=== PATIENT | male | born 1935 | race Caucasian/White ===

== ENCOUNTER 2017-02-02 16:56 | Emergency (ER) | payer OTHER, MEDICARE ==
[~2017-02-02] VITALS: Ht 172.7 cm; Wt 61.7 kg
[~2017-02-02 16:56] MED LIST: AMAN100T PO; ASPI1TAB PO; CALCIUM CHEWS PO; CARB25TA PO; CIPR500T3 PO; CLON1TAB PO; COMT200T PO; IBAN150T5 PO; IPRA6SP; MIRA0.5T PO; PERI8.6T PO; SIMV20TA2 PO; SYSTSOL14 OU; TAMS0.4C2 PO; TYLE650T25 PO; VESI10TA PO; VITA500046 PO; VITMTA PO; [UNRECOGNIZED DRUG - CODE] PO
[2017-02-02 16:57] VITALS: BP 133/62
[2017-02-02] MEDS ORDERED: ASPI81TA7 PO (17:25)
[2017-02-02] MEDS ORDERED: IBUP200C PO (17:25)
[2017-02-02] MEDS ORDERED: QUET1TAB8 PO (17:25)
[2017-02-02] MEDS ORDERED: CLON0.5T PO (17:25)
[2017-02-02] MEDS ORDERED: SERT25TA PO (17:25)
[2017-02-02] MEDS ORDERED: AUGM500T34 PO (17:25)
[2017-02-02] MEDS ORDERED: MELA5CHW PO (17:25)
[2017-02-02] MEDS ORDERED: NS 1,000 ML IV SCH (17:28)
[2017-02-02 18:07] LABS: BASO % 0.1 % (0.0-1.0); EOS % 0.4 % (0.0-3.0); INR 1.3; LARGE UNSTAINED CELL # 0.1 K/mm3 (0.0-0.4); LARGE UNSTAINED CELL % 0.9 % (0.0-4.0); LYMPH # 0.8 K/mm3 (1.5-4.5); LYMPH % 5.7 % (24.0-44.0); MEAN CORPUSCULAR HEMOGLOBIN 32.1 pg (27.0-33.0); MEAN CORPUSCULAR HGB CONC 34.1 g/dl (32.0-36.5); MEAN CORPUSCULAR VOLUME 94.2 fl (80.0-96.0); MONO # 0.3 K/mm3 (0.0-0.8); MONO % 2.7 % (0.0-5.0); NEUTROPHILS % 90.2 % (36.0-66.0); PLATELET COUNT, AUTOMATED 161 k/mm3 (150-450); RED CELL DISTRIBUTION WIDTH 12.4 % (11.5-14.5); WHITE BLOOD COUNT 12.2 K/mm3 (4.0-10.0)
[2017-02-02 18:37] LABS: ALBUMIN 2.9 GM/DL (3.2-5.2); ALBUMIN/GLOBULIN RATIO 0.85 (1.00-1.93); BILIRUBIN,DIRECT 0.4 MG/DL (0.0-0.2); BILIRUBIN,TOTAL 0.9 MG/DL (0.2-1.0); CALCIUM LEVEL 8.7 MG/DL (8.8-10.2); CREATININE FOR GFR 1.94 MG/DL (0.70-1.30); GLOMERULAR FILTRATION RATE 35.5 (>35); POTASSIUM SERUM 3.5 MEQ/L (3.5-5.1); TOTAL PROTEIN 6.3 GM/DL (6.4-8.2)
[2017-02-02] MEDS ORDERED: AVEL1TAB PO (19:16)
--- NOTE | 2017-02-03 07:36 | REP ---
PORTABLE CHEST: 02/02/2017. Comparison: 02/06/2016. Clinical history: Dyspnea and cough. Findings: No gross effusion. Soft tissue density right mid upper chest may be portable chest slightly rotated. There is hyperinflation with COPD. The right mid chest shows density representing the inferior margin of the scapula. I see no dense consolidation with air bronchograms or pneumothorax. Heart not grossly enlarged for portable AP technique. The aorta is calcified at the arch, tortuous without aneurysm. There is pulmonary artery hypertension and some fibrosis consistent with COPD. Impression: 1. There is minor basilar fibrotic or atelectatic change, left greater than right. Rotation of the chest towards that left side. COPD findings. 2. Right mid lung zone shows the scapular shadow overlying the mid chest. There is no cardiomegaly, edema, effusion or other acute finding. Signed by Gonzales Whitehead MD 02/03/2017 05:15 P
--- NOTE | 2017-02-03 20:10 | ECGEPIP ---
Stationary ECG Study [facility] - ED Test Date: 2017-02-02 Pat Name: JOSÉ ANTONIO CONDE Department: Room: - Gender: M Count Team Member: ct : 1935 Requested By: RAMIREZ BANSAL Order Number: [id number] Reading MD: Ankur Francisco Measurements Intervals [place] Rate: 67 P: 54 MI: 162 QRS: -5 QRSD: 98 T: 93 QT: 374 QTc: 395 Interpretive Statements SINUS RHYTHM NONSPECIFIC ST & T-WAVE ABNORMALITY DELAYED R WAVE PROGRESSION 11/28/15 - RATE INCREASED Electronically Signed On 02-03-2017 20:10:10 EDT by Ankur Francisco
== END 2017-02-02 20:20 | disposition home or self-care (01) ==
LOC: M ED 17:37
DX: J15.9 Unspecified bacterial pneumonia (principal); E86.0 Dehydration; I51.9 Heart disease, unspecified; Z86.73 Personal history of transient ischemic attack (TIA), and cerebral infarction without residual deficits; Z88.1 Allergy status to other antibiotic agents; Z79.899 Other long term (current) drug therapy; Z79.82 Long term (current) use of aspirin; Z79.2 Long term (current) use of antibiotics

== ENCOUNTER 2017-02-06 16:57 | Inpatient (IN) | payer OTHER, MEDICARE ==
[~2017-02-06] VITALS: Ht 172.7 cm; Wt 56.3 kg
[~2017-02-06 16:57] MED LIST changes: +ASPI81TA7 PO; +AUGM500T34 PO; +AVEL1TAB PO; +CLON0.5T PO; +IBUP200C PO; +MELA5CHW PO; +QUET1TAB8 PO; +SERT25TA PO
[2017-02-06] MEDS ORDERED: NS 1,000 ML IV SCH (17:14)
[2017-02-06] MEDS ORDERED: MOXI1TAB PO (17:26)
[2017-02-06] MEDS ORDERED: ACETAMINOPHEN 650 MG SUPP PR ONE (17:45)
[2017-02-06 18:17] LABS: VENOUS BASE EXCESS -0.2 (-2.0-2.0); VENOUS O2 SATURATION 86.3 % (60.0-80.0); VENOUS PARTIAL PRESSURE CO2 33.6 mmHg (38.0-50.0); VENOUS STANDARD HCO3 24.1 MEQ/L; VENOUS TOTAL CO2 24.2 MEQ/L (24.0-28.0)
[2017-02-06] MEDS: IPRATROPIUM 0.5MG/ALBUTEROL 2.5MG INH SOL UD 3ML (DUONEB)(J7620) NEB PRN ×3 (18:23→18:33)
[2017-02-06 18:26] LABS: BASO % 0.2 % (0.0-1.0); EOS % 0.2 % (0.0-3.0); LARGE UNSTAINED CELL # 0.1 K/mm3 (0.0-0.4); LARGE UNSTAINED CELL % 0.7 % (0.0-4.0); LYMPH # 0.7 K/mm3 (1.5-4.5); LYMPH % 4.9 % (24.0-44.0); MEAN CORPUSCULAR HEMOGLOBIN 31.2 pg (27.0-33.0); MEAN CORPUSCULAR VOLUME 94.4 fl (80.0-96.0); MONO # 0.4 K/mm3 (0.0-0.8); MONO % 3.2 % (0.0-5.0); NEUTROPHILS # 11.1 K/mm3 (1.8-7.7); NEUTROPHILS % 90.8 % (36.0-66.0); PLATELET COUNT, AUTOMATED 228 k/mm3 (150-450); RED CELL DISTRIBUTION WIDTH 12.5 % (11.5-14.5); WHITE BLOOD COUNT 12.2 K/mm3 (4.0-10.0)
[2017-02-06 18:29] LABS: INR 1.37
[2017-02-06 18:40] LABS: ALBUMIN 2.3 GM/DL (3.2-5.2); ALBUMIN/GLOBULIN RATIO 0.64 (1.00-1.93); BILIRUBIN,DIRECT 0.4 MG/DL (0.0-0.2); BILIRUBIN,TOTAL 0.8 MG/DL (0.2-1.0); TOTAL PROTEIN 5.9 GM/DL (6.4-8.2)
[2017-02-06 18:41] LABS: ANION GAP 11 MEQ/L (8-16); BLOOD UREA NITROGEN 35 MG/DL (7-18); CALCIUM LEVEL 8.1 MG/DL (8.8-10.2); CARBON DIOXIDE LEVEL 25 MEQ/L (21-32); CHLORIDE LEVEL 115 MEQ/L (98-107); CREATININE FOR GFR 1.02 MG/DL (0.70-1.30); GLOMERULAR FILTRATION RATE > 60.0 (>35); GLUCOSE, FASTING 117 MG/DL (83-110); SODIUM LEVEL 151 MEQ/L (136-145)
[2017-02-06] MEDS ORDERED: FUROSEMIDE 100 MG/10 ML VIAL (J1940) IV ONE (19:00)
[2017-02-06] MEDS ORDERED: SENN8.6T8 PO (19:03)
[2017-02-06] MEDS ORDERED: FLOM5CAP PO (19:03)
[2017-02-06] MEDS ORDERED: MOXIFLOXACIN HCL 400 MG in APPROPRIATE DILUENT 1 EA IV ONE (19:30)
[2017-02-06] MEDS ORDERED: AUGM500T34 PO (19:51)
[2017-02-06] MEDS ORDERED: OXYB15TA PO (19:51)
[2017-02-06] MEDS ORDERED: CALCTAB41 PO (19:51)
[2017-02-06] MEDS ORDERED: ACETAMINOPHEN 650 MG SUPP PR PRN (20:45)
[2017-02-06] MEDS ORDERED: ONDANSETRON 4MG/2ML VIAL (J2405) IV PRN (20:45)
[2017-02-06] MEDS ORDERED: PIPERACILLIN/TAZOBACTAM SOD 3.375 GM in D5W MINI-BAG PLUS 50 ML IV SCH (20:45)
[2017-02-06] MEDS ORDERED: SCOPOLAMINE 1.5 MG TRANSDERMAL TOP SCH (21:00)
[2017-02-06] MEDS ORDERED: IPRATROPIUM 0.06% NASAL SPRAY 15 ML (ATROVENT) SCH (21:00)
[2017-02-06] MEDS ORDERED: KCL 40MEQ IN D5/0.45NS 1000ML 1,000 ML IV SCH (21:00)
[2017-02-06] MEDS ORDERED: LORazepam 2 MG/ML VIAL (J2060) IV PRN (21:15)
[2017-02-06 21:25] VITALS: BP 117/58
[2017-02-06] MEDS ORDERED: CLINDAMYCIN 600 MG in APPROPRIATE DILUENT 1 EA IV SCH (22:00)
--- NOTE | 2017-02-06 22:00 | HPEPDOC ---
Medical History and Physical Date of Admission February 06, 2017 at 20:32 History and Physical HISTORY AND PHYSICAL Date of admission: 02/06/2017 PCP: Dr. Magallon Chief complaint: Very weak HPI: 81-year-old male with dementia, Parkinson's disease, history of CVA, hyperlipidemia, seasonal allergies, vitamin D deficiency, BPH, hiatal hernia, macular degeneration, possible COPD who was brought to the emergency department by his because she states that he has been extremely weak. The patient was seen in the emergency Department 4 days prior and was diagnosed with pneumonia. At that time, they were offered admission, but the declined, stating that they just wanted to go home. states that since they have been at home, he has hardly had anything to drink or eat and has not been swallowing. She states that he has been on a thickened liquid and pured solid diet since this past summer, secondary to risk for aspiration. She states that at that time, a feeding tube was recommended, but her does not want a feeding tube, and they have been using this modified diet in the interim. She states that although he has not been able to take most of his medications for 3 days, she has been able to get the antibiotic in him until this morning. She denies any vomiting by the patient, but she does state that his urine has been very dark, and she figured that was secondary to dehydration. The patient is not able to participate in the interview secondary to his dementia, so the entirety of this is obtained from the and prior records. The states that she knows the patient is nearing the end of his life. She is quite clear that the patient wanted to be DNR and did not when a feeding tube. She is trying to decide at this point about whether or not she wants to go home with hospice right now or give a trial of treatment through the weekend. After much discussion, and over one hour of time at the bedside with her and the patient, she has decided that she would like to proceed with a trial of treatment over the weekend. Past medical history: Dementia, Parkinson's disease, history of CVA, hyperlipidemia, seasonal allergies, vitamin D deficiency, BPH, hiatal hernia, macular degeneration, possible COPD Past surgical history: Hernia repair, cataract surgery Family history: Noncontributory secondary to age Social history: The patient quit smoking many years ago. He used to drink beer nightly, but per the , he has not been able to drink lately. Allergies: Cephalosporins Review of systems: Unable to obtain secondary to the patient's dementia. The does note that he has had fevers, cough, and constipation. She denies any vomiting, bleeding. She also notes that he has had dark urine. Home meds: See below Physical exam: Vital signs: Vital Sign - Last 24 Hours 02/06/17 02/06/17 02/06/17 02/06/17 17:10 17:30 17:30 17:57 Temp 101.2 Pulse 148 136 Resp 24 26 B/P (MAP) 148/84 (105) Pulse Ox 94 93 O2 Delivery Room Air Room Air 02/06/17 02/06/17 02/06/17 02/06/17 18:12 18:27 18:31 18:36 Temp 101.5 Pulse 78 78 80 Resp 24 B/P (MAP) Pulse Ox 92 92 02/06/17 02/06/17 02/06/17 02/06/17 18:36 18:42 18:51 18:55 Pulse 81 86 81 B/P (MAP) 120/68 (85) Pulse Ox 99 02/06/17 02/06/17 02/06/17 02/06/17 18:55 18:57 19:05 19:12 Temp 100.3 Pulse 80 94 90 B/P (MAP) Pulse Ox 95 94 02/06/17 02/06/17 02/06/17 02/06/17 19:27 19:41 19:42 19:57 Temp 98.6 Pulse 88 84 84 B/P (MAP) Pulse Ox 94 94 94 02/06/17 02/06/17 02/06/17 02/06/17 20:12 20:27 20:42 20:57 Pulse 82 82 82 80 Pulse Ox 93 94 94 94 Gen.: awake, babbling, no acute distress, temporal wasting Eyes: Extraocular movements intact, normal sclera ENT: Dry mucous membranes Cardiovascular: RRR Lungs: rhonchi in all lung wayne; no wheeze Abdomen: Soft, NT/ND, normal BS Extremities: No peripheral edema Neuro: open eyes to verbal stimuli but unable to follow commands and form intelligible speech; per , his baseline speech varies from words to babbling , but he is usually able to tell you his name Psych: unable to assess Labs and radiology: See below Sodium 151 Potassium 3.0 WBC 12.2 Lactate 2.3 Troponin 1.75 BNP 3120 Flu screen negative Chest x-ray: There is no official read, but there seems to be vascular congestion Assessment and plan: 81-year-old male with dementia, Parkinson's disease, history of CVA, hyperlipidemia, seasonal allergies, vitamin D deficiency, BPH, hiatal hernia, macular degeneration, possible COPD who was brought to the emergency department by his because she states that he has been extremely weak. He is admitted with a pneumonia. 1. Pneumonia: The patient has been on Augmentin as an outpatient, but he returns today with fevers. I suspect that this is likely secondary to aspiration , as the does state that he is on a modified diet, but that they have been formally recommended to get a feeding tube. Since he has failed just Augmentin therapy, we will add vancomycin to his regimen, and we will also place him on Zosyn to cover any anaerobes. We will collect blood and sputum cultures. Lactate is slightly elevated at 2.3, and we will repeat this in several hours. We will also hydrate the patient. In the setting of concern for aspiration, and since the states that the patient has not been swallowing, we will make the patient nothing by mouth at this time, and we will request a formal speech swallow evaluation. 2. Hypernatremia: I suspect that this is secondary to the patient's poor by mouth intake. We will start him on very gentle D5 half-normal and follow his sodium. 3. Hypokalemia: Likely secondary to poor by mouth intake. We will replace his potassium in his IV fluids. 4. Elevated troponin: The patient's troponin is 1.75. Secondary to his dementia , it is unclear if he has chest pain or not. Initial EKG was very tachycardic, but once his fever improved, his heart rate has normalized. EKG shows some depression in lateral leads. The fact that this indicates likely injury to the heart muscle has been discussed with the at the bedside. She states that they are not interested in any cardiac catheterization or other intervention. 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 She has ultimately decided a trial of antibiotics is what they will proceed with, but she is not interested in pursuing any transfer to [place] for cardiac issues. The ER nurse practitioner has spoken with Dr. Davies of cardiology, who reported that he felt this troponin elevation was most likely secondary to the BNP elevation and likely heart failure. We will monitor on telemetry and continue to trend troponins. 5. Elevated BNP: The patient has no prior diagnosis of heart failure, but his BNP is quite elevated at greater than 3000, and a chest x-ray does look suspicious for vascular congestion. He has received 1 dose of Lasix in the ER. Since he is Lasix liset, and since he has had a poor by mouth intake with resultant hypernatremia, I will hold off on further Lasix, until we get a repeat sodium. We will also check an echo. 6. Dementia and Parkinson's disease: Secondary to the patient not swallowing, we will hold his amantadine, Sinemet, Seroquel, Zoloft. We will replace his nightly Klonopin with a small dose of IV Ativan. The states that he is usually able to tell you his name, but that his speech is not too far off from his baseline. It does appear, however, that he is less interactive than usual. The fact that the patient has not been swallowing in the last several days, also speaks to concern for progression of his dementia, which I have discussed with the . 7. History of CVA, hyperlipidemia: We will hold the patient's home aspirin and statin given the fact that he is not swallowing. 8. BPH: Given that the patient is not swallowing, we will hold his home Flomax and oxybutynin. The has requested that we not use a [place] catheter as she feels that this would be uncomfortable for the patient. She states that he has been urinating freely on his own. We will instead use a condom catheter in an attempt to monitor his I's and O's since we are worried about potential heart failure. DVT prophylaxis: SCDs Dispo: admit as an inpatient to the service of Dr. Boggs; the patient's and I had an extensive discussion today regarding whether or not she was ready for the patient to be comfort measures only and pursue hospice, or whether she wanted to give a trial of treatment over the weekend. At this time, she has opted to do a trial of treatment over the weekend. However, she is still very interested in hospice. The geriatric social worker in the emergency department, Bernardino, has spoken with her to give her an idea of what hospice would be able to offer. She is interested in meeting with hospice on Wednesday, which Bernardino is working on arranging for us. The is made it pretty clear that unless he has improved significantly by Wednesday, she will likely want to try to take him home with hospice and transition to comfort measures at that time. CODE STATUS: DNR/DNI Vital Signs Vital Signs Date Time Temp Pulse Resp B/P (MAP) Pulse Ox O2 Delivery O2 Flow Rate FiO2 02/06/17 20:57 80 94 02/06/17 19:41 98.6 02/06/17 18:12 24 02/06/17 17:30 Room Air Laboratory Data Labs 24H Laboratory Tests 2 02/06/17 18:02: White Blood Count 12.2H, Red Blood Count 3.41L, Hemoglobin 10.6L, Hematocrit 32.2L, Mean Corpuscular Volume 94.4, Mean Corpuscular Hemoglobin 31.2, Mean Corpuscular Hemoglobin Concent 33.0, Red Cell Distribution Width 12.5, Platelet Count 228, Neutrophils (%) (Auto) 90.8H, Lymphocytes (%) (Auto) 4.9L, Monocytes (%) (Auto) 3.2, Eosinophils (%) (Auto) 0.2, Basophils (%) (Auto) 0.2, Neutrophils # (Auto) 11.1H, Lymphocytes # (Auto) 0.7L, Monocytes # (Auto) 0.4, Eosinophils # (Auto) 0.0, Basophils # (Auto) 0.0, Large Unclassified Cells % 0.7 , Large Unclassified Cells # 0.1, Prothrombin Time 17.0H, Prothromb Time International Ratio 1.37, Blood Gas Bicarbonate Standard 24.1, Venous Blood pH 7.457H, Venous Blood Partial Pressure CO2 33.6L, Venous Blood Partial Pressure O2 53.0H, Venous Blood Total Carbon Dioxide 24.2, Venous Blood HCO3 23.2, Venous Blood Oxygen Saturation 86.3H, Venous Blood Base Excess -0.2, Anion Gap 11, Glomerular Filtration Rate > 60.0, Lactic Acid Level 2.3*H, Blood Urea Nitrogen 35H, Creatinine 1.02, Sodium Level 151H, Potassium Level 3.0L, Chloride Level 115H, Carbon Dioxide Level 25, Calcium Level 8.1L, Total Creatine Kinase 242, Aspartate Amino Transf (AST/SGOT) 52H, Alanine Aminotransferase (ALT/SGPT) 21, Alkaline Phosphatase 112, Total Bilirubin 0.8, Direct Bilirubin 0.4H, Creatine Kinase MB 1.6, Creatine Kinase MB Relative Index 0.66, Troponin I 1.75*H, B-Type Natriuretic Peptide 3120H, Total Protein 5.9L, Albumin 2.3L, Albumin/Globulin Ratio 0.64L CBC/BMP Laboratory Tests 02/06/17 18:02 Red Blood Count 3.41 L, Mean Corpuscular Volume 94.4, Mean Corpuscular Hemoglobin 31.2, Mean Corpuscular Hemoglobin Concent 33.0, Red Cell Distribution Width 12.5, Neutrophils (%) (Auto) 90.8 H, Lymphocytes (%) (Auto) 4.9 L, Monocytes (%) (Auto) 3.2, Eosinophils (%) (Auto) 0.2, Basophils (%) (Auto ) 0.2, Neutrophils # (Auto) 11.1 H, Lymphocytes # (Auto) 0.7 L, Monocytes # ( Auto) 0.4, Eosinophils # (Auto) 0.0, Basophils # (Auto) 0.0, Calcium Level 8.1 L , Total Creatine Kinase 242 Microbiology Microbiology 02/06/17 Blood Culture, Received Pending 02/06/17 Influenza Virus Type A Antigen - Final, Complete 02/06/17 Influenza Virus Type B Antigen - Final, Complete Home Medications Scheduled (Systane Balance Restorati) 0.6 % Sheree, 1 DROP OU BID (Melatonin) 5 Mg Chw, 5 MG PO QHS Amantadine HCl (Amantadine HCl) 100 Mg Tab, 100 MG PO TID 0600,1200,1900 Amoxicillin/Clavulanate Potas (Augmentin 500-125 mg) 1 Tab Tab, 500 MG PO BID For 10 Days; Started 02/02/2017 Aspirin (Aspirin) 81 Mg Tab, 162 MG PO QAM Calcium/Vitamin D (Calcium 500+D 500-400 mg-Unit) 1 Tab Tab, 1 TAB PO DAILY Carbidopa/Levodopa (Carbidopa/Levodopa 25-100 mg) 1 Tab Tab, 1 TAB PO QAM See Comment Carbidopa/Levodopa (Carbidopa/Levodopa ER 50-200 mg) 1 Tab Tabcr, 1 TAB PO 5XD See Comment; TAKE EVERY 3.5 HOURS Cholecalciferol (Vitamin D) 5,000 Unit Tab, 5,000 UNIT PO QHS Clonazepam (Clonazepam) 0.5 Mg Tab, 0.5 MG PO QHS Docusate Sod/Senna (Docusate Sodium & Senna S 8.6-50 mg) 1 Tab Tab, 4 TAB PO QAM Entacapone (Comtan) 200 Mg Tab, 200 MG PO 5XD 0600,0900,1200,1600,1900 Ibandronate Sodium (Ibandronate Sodium) 150 Mg Tab, 150 MG PO QMONTH Ipratropium [place] (Ipratropium [place]) 165 [place]/15 Ml Naspr, 1 SPRAY NA BID Multivitamins *[facility] STOCKED* (Thera M Plus *[facility] STOCKED*) 1 Tab Tab, 1 TAB PO QHS Oxybutynin Chloride (Oxybutynin Chloride ER) 15 Mg Tab, 15 MG PO QHS Pramipexole Dihydrochloride (Mirapex) 0.5 Mg Tab, 0.5 MG PO TID 0600,1200,1600 Quetiapine Fumerate (Quetiapine Fumarate) 100 Mg Tab, 100 MG PO QHS Sertraline Hcl (Sertraline HCl) 25 Mg Tab, 37.5 MG PO DAILY 1500 Simvastatin (Simvastatin) 20 Mg Tab, 20 MG PO QHS Tamsulosin Hydrochloride (Flomax) 0.4 Mg Cap, 0.4 MG PO QHS Scheduled PRN Ibuprofen (Ibuprofen) 200 Mg Cap, 200 MG PO Q8H PRN for PAIN / FEVER Allergies Coded Allergies: Cephalexin (Verified Allergy, Unknown, 02/02/17) HUA VIERA February 06, 2017 22:00
--- NOTE | 2017-02-06 23:01 | PHACANCOPD ---
PHARMACY VANCOMYCIN DOSING Pt Demographics Demographics Patient Age:81 , Weight:56.300 , Gender: male Adjusted Body Weight Date: 02/06/17, Adjusted Body Weight: [56] Kg Events Past 24 Hours Events Past 24 Hours: NO: Dialysis, Diuretic Therapy, Change in CrCl, Fever, Elevation in WBC, Pending Diagnostics, Pending Procedures, Other Vancomycin Vancomycin Target Ranges: 15-20 mcg/ml Vancomycin Load Y/N: No Load Dose Date Time Vancomycin Load Dose: Date: Time: Vancomycin Dose Date: 02/06/17. Current Vancomycin Dose: [1000MG Q24H] Intermittent Dosing?: No Labs Labs Item Value Date Time White Blood Count 12.2 K/mm3 H 02/06/171801 Creatinine 1.02 MG/DL 02/06/171801 Vital Signs Label Value Date Time Patient Temperature 100.3 degrees F 02/06/172124 Temperature Source Tympanic 02/06/172124 Micro Microbiology 02/06/17 Blood Culture, Received Pending 02/06/17 Blood Culture, Received Pending 02/06/17 Blood Culture, Received Pending 02/06/17 Influenza Virus Type A Antigen - Final, Complete 02/06/17 Influenza Virus Type B Antigen - Final, Complete Creatinine Clearance Date:02/06/17. Creatinine Clearance: [54]. Pending Labs Trough ordered for 05-16 @ 2300 Assessment and Plan Maintaining Current Dose?: Yes Reason for dose change: No Dose Change Pharmacist Note Pharmacist Note Date: 02/06/17. Pharmacist note:Dosed at 1000mg q24h with a trough ordered for 05 -16 @2300. Will continue to monitor and make adjustments as needed. STACIE WHITT PHARMACY February 06, 2017 23:01
[2017-02-06 23:59] VITALS: BP 117/59
[2017-02-07] MEDS ORDERED: VANCOMYCIN HCL 1,000 MG, VIAL MATE ADAPTER 1 EACH in D5W 250 ML IV SCH ×3
[2017-02-07 02:58] VITALS: BP 75/61
[2017-02-07 03:00] VITALS: BP 99/46
[2017-02-07] MEDS ORDERED: PIPERACILLIN/TAZOBACTAM SOD 3.375 GM in D5W MINI-BAG PLUS 50 ML IV SCH (03:00)
[2017-02-07] MEDS: LORazepam 2 MG/ML VIAL (J2060) IV PRN ×5 (04:38→18:04)
[2017-02-07] MEDS: MORPHINE 2 MG/ML 1ML SYRINGE IV PRN ×8 (05:46→16:45)
--- NOTE | 2017-02-07 07:18 | REP ---
CHEST, PORTABLE: AP portable view of the chest is performed. Comparison 02/02/2017. Bibasilar infiltrates are seen. The heart is upper limits of normal in size. There is calcification and tortuosity of the thoracic aorta. IMPRESSION: Bibasilar infiltrates. Signed by Brennan Mccarthy MD 02/07/2017 07:51 P
--- NOTE | 2017-02-07 13:03 | IPNPDOC ---
Subjective Date Seen The patient was seen on 02/07/17. Subjective Chief Complaint/HPI The patient is a 81-year-old male admitted with a reason for visit of Pneumonia. 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 per * currently on morphine, scopolamine patch, oxygen for comfort * pt's was interested in taking him home with hospice but since it's the weekend hospice wouldn't be in to evaluate pt * continue to keep pt comfortable (2) Electrolyte abnormality Status: Acute (3) Elevated troponin Status: Acute (4) Altered mental status Status: Acute (5) Congestive heart failure Status: Acute (6) Pneumonia Status: Acute (7) Metabolic encephalopathy Status: Acute (8) History of CVA (cerebrovascular accident) Status: Chronic (9) Hyperlipidemia Status: Chronic Plan/VTE VTE Prophylaxis Ordered?: No (pt is Comfort measures only) Plan/Urinary Catheter Reason for insertion/continuin: Critical Pt monitoring Plan Advance Directives: Comfort care VS, I&O, 24H, Fishbone Vital Signs/I&O Vital Signs Date Time Temp Pulse Resp B/P (MAP) Pulse Ox O2 Delivery O2 Flow Rate FiO2 02/07/17 09:00 Room Air 02/07/17 07:43 14 02/07/17 05:46 2.0 02/07/17 03:00 70 99/46 (63) 02/07/17 02:58 99.8 92 I&O- Last 24 Hours up to 6 AM 02/07/17 06:00 Intake Total 1620 ml Balance 1620 ml Laboratory Data 24H LABS Laboratory Tests 2 02/06/17 18:02: White Blood Count 12.2H, Red Blood Count 3.41L, Hemoglobin 10.6L, Hematocrit 32.2L, Mean Corpuscular Volume 94.4, Mean Corpuscular Hemoglobin 31.2, Mean Corpuscular Hemoglobin Concent 33.0, Red Cell Distribution Width 12.5, Platelet Count 228, Neutrophils (%) (Auto) 90.8H, Lymphocytes (%) (Auto) 4.9L, Monocytes (%) (Auto) 3.2, Eosinophils (%) (Auto) 0.2, Basophils (%) (Auto) 0.2, Neutrophils # (Auto) 11.1H, Lymphocytes # (Auto) 0.7L, Monocytes # (Auto) 0.4, Eosinophils # (Auto) 0.0, Basophils # (Auto) 0.0, Large Unclassified Cells % 0.7 , Large Unclassified Cells # 0.1, Prothrombin Time 17.0H, Prothromb Time International Ratio 1.37, Blood Gas Bicarbonate Standard 24.1, Venous Blood pH 7.457H, Venous Blood Partial Pressure CO2 33.6L, Venous Blood Partial Pressure O2 53.0H, Venous Blood Total Carbon Dioxide 24.2, Venous Blood HCO3 23.2, Venous Blood Oxygen Saturation 86.3H, Venous Blood Base Excess -0.2, Anion Gap 11, Glomerular Filtration Rate > 60.0, Lactic Acid Level 2.3*H, Blood Urea Nitrogen 35H, Creatinine 1.02, Sodium Level 151H, Potassium Level 3.0L, Chloride Level 115H, Carbon Dioxide Level 25, Calcium Level 8.1L, Total Creatine Kinase 242, Aspartate Amino Transf (AST/SGOT) 52H, Alanine Aminotransferase (ALT/SGPT) 21, Alkaline Phosphatase 112, Total Bilirubin 0.8, Direct Bilirubin 0.4H, Creatine Kinase MB 1.6, Creatine Kinase MB Relative Index 0.66, Troponin I 1.75*H, B-Type Natriuretic Peptide 3120H, Total Protein 5.9L, Albumin 2.3L, Albumin/Globulin Ratio 0.64L 02/06/17 21:49: Lactic Acid Level 2.6*H, Sodium Level 152H, Total Creatine Kinase 227, Creatine Kinase MB 1.9, Creatine Kinase MB Relative Index 0.83, Troponin I 1.71*H 02/07/17 02:06: Lactic Acid Followup at 4 Hours 1.7 CBC/BMP Laboratory Tests 02/06/17 18:02 Red Blood Count 3.41 L, Mean Corpuscular Volume 94.4, Mean Corpuscular Hemoglobin 31.2, Mean Corpuscular Hemoglobin Concent 33.0, Red Cell Distribution Width 12.5, Neutrophils (%) (Auto) 90.8 H, Lymphocytes (%) (Auto) 4.9 L, Monocytes (%) (Auto) 3.2, Eosinophils (%) (Auto) 0.2, Basophils (%) (Auto ) 0.2, Neutrophils # (Auto) 11.1 H, Lymphocytes # (Auto) 0.7 L, Monocytes # ( Auto) 0.4, Eosinophils # (Auto) 0.0, Basophils # (Auto) 0.0, Calcium Level 8.1 L , Total Creatine Kinase 242 02/06/17 21:49 Total Creatine Kinase 227 Microbiology Microbiology 02/06/17 Blood Culture, Received Pending 02/06/17 Blood Culture, Received Pending 02/06/17 Blood Culture, Received Pending 02/06/17 Influenza Virus Type A Antigen - Final, Complete 02/06/17 Influenza Virus Type B Antigen - Final, Complete SUDHIR KIRKPATRICK DO February 07, 2017 13:03
[2017-02-07] MEDS ORDERED: MORPHINE SULF IN 0.9% NACL 100 MG in APPROPRIATE DILUENT 1 EA IV SCH ×2 (17:00)
[2017-02-07] MEDS ORDERED: SALIVA SUBSTITUTE(MOUTHKOTE) BTL MT PRN (17:15)
--- NOTE | 2017-02-08 20:41 | ECGEPIP ---
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
--- NOTE | 2017-02-08 20:42 | ECGEPIP ---
Stationary ECG Study [facility] - ED Test Date: 2017-02-06 Pat Name: JOSÉ ANTONIO CONDE Department: Room: [place] [address] Gender: M Content Analyst: myrtle : 1935 Requested By: RAMIREZ BANSAL Order Number: [id number] Reading MD: Ankur Francisco Measurements Intervals [place] Rate: 85 P: -52 ND: 114 QRS: 21 QRSD: 93 T: 0 QT: 349 QTc: 415 Interpretive Statements SINUS RHYTHM WITH SHORT ND INTERVAL NONSPECIFIC ST & T-WAVE ABNORMALITY CW 02/06/17 - RATE DECREASED RHYTHM CHANGE IMPROVED ST T WAVE CHANGES HOWEVER CW 02/02/17 ST T WAVE CHANGES NONSPECIFIC VS ISCHEMIA CLINICALLY CORRELATE Electronically Signed On 02-08-2017 20:42:41 EDT by Ankur Francisco
--- NOTE | 2017-02-09 07:39 | DSES ---
DATE OF ADMISSION: 02/06/2017 DATE OF /DISCHARGE: 02/07/2017 REASON FOR ADMISSION: Weakness. FINAL DIAGNOSES: 1. Cardiopulmonary arrest secondary to pneumonia secondary to Parkinson's disease, and acute respiratory failure with periods of apnea 2. Sepsis. 3. Electrolyte abnormality. 4. Elevated troponins. 5. Altered mental status. 6. Congestive heart failure. 7. Metabolic encephalopathy. 8. History of cerebral vascular accident (CVA). 9. Hyperlipidemia. HISTORY OF PRESENT ILLNESS: The patient is an 81-year-old male who presented to the emergency room with his who stated that the patient has been very weak. He was recently seen in the emergency room four days prior. He was diagnosed with pneumonia at that time. They were offered an admission but the declined stating they just want to go home. The states that since he has been home he has hardly had anything to eat or drink, has not been swallowing. She states that he has been on a thickened liquid puree diet since last summer secondary to his risk of aspiration given his underlying Parkinson's disease. She stated that at that time, tube feed was recommended but her does not want a feeding tube and he had been using a modified diet in the interim. She states that although he has been able to take most of his medications for the past three days she has been able to give him antibiotics up until this morning. Denies any vomiting by the patient or any other symptoms. She made it quite clear that the patient wanted to be DO NOT RESUSCITATE/DO NOT INTUBATE and no feeding tube was to be used. The states that she is aware that the patient is nearing the end of his life and did not want any heroic measures to be taken. At this point she decided she wanted the patient to be admitted and that she would consider hospice on Wednesday but she wanted him to try antibiotics. HOSPITAL COURSE: The patient was admitted under hospitalist service. However, over the next several hours the patient's respiratory status had deteriorated and another conversation was had by the admitting provider and the who at this time wished to make the patient comfort measures only. Vitals, labs and medications were all discontinued, only comfort measures only ([employer]) medications were continued which included morphine, Ativan, and a scopolamine patch. I saw the patient the following day. He had labored breathing with some apneic episodes. He still appeared to be in a lot of discomfort. At that time a decision was made to start the patient on morphine drip per the 's request since he did appear to uncomfortable. Once the patient was started on a morphine drip he had within hours. CAUSE OF : Cardiopulmonary arrest secondary to pneumonia secondary to sepsis secondary to Parkinson's disease. MTDD
== END 2017-02-07 18:55 | disposition expired | DRG 720 ==
LOC: EDBD 16:57 → M ED 17:28 → M ED INP 20:32 → M PCU 21:32 → M MSPAV 02-07 07:51
PROVIDERS: ADMIT Hospitalist; ATTEND Internal Medicine
DX: A41.9 Sepsis, unspecified organism (principal); G93.41 Metabolic encephalopathy; E87.0 Hyperosmolality and hypernatremia; J18.9 Pneumonia, unspecified organism; I50.9 Heart failure, unspecified; G20 Parkinson's disease; F02.80 Dementia in other diseases classified elsewhere, unspecified severity, without behavioral disturbance, psychotic disturbance, mood disturbance, and anxiety; E78.5 Hyperlipidemia, unspecified; Z51.5 Encounter for palliative care; Z86.73 Personal history of transient ischemic attack (TIA), and cerebral infarction without residual deficits; E87.6 Hypokalemia; Z79.82 Long term (current) use of aspirin; Z79.899 Other long term (current) drug therapy; Z88.8 Allergy status to other drugs, medicaments and biological substances